=== PATIENT | female | born 2000 | race Caucasian/White ===

== ENCOUNTER 2020-08-07 15:06 | Outpatient (CLI) | payer SELFPAY ==
[2020-08-07 16:29] LABS: Hepatitis A Antibody IgM Non-Reactive (Nonreactive); Hepatitis B Core IgM Non-Reactive (Nonreactive); Hepatitis B Surface Antigen Non-Reactive (Nonreactive); Hepatitis C Virus Antibody Non-Reactive (Nonreactive)
[2020-08-07 16:33] LABS: HIV 1 & 2 Antibody Non-Reactive (Non-Reactiv); HIV 1 & 2 Antigen Non-Reactive (Non-Reactiv)
[2020-08-07 16:59] LABS: Rapid Plasma Reagin Syphilis Reactive (Nonreactive)
[2020-08-10 14:03] LABS: HSV 1 DNA NOT DETECTED; HSV 2 DNA NOT DETECTED; HSV Source SERUM
== END 2020-08-07 15:07 | disposition home or self-care (01) ==
PROVIDERS: Visit Provider Nurse Practitioner Family
DX: Z72.89 Other problems related to lifestyle (principal); N89.9 Noninflammatory disorder of vagina, unspecified
CPT/HCPCS: 36415; 80074; 86592; 87530; 87806

== ENCOUNTER 2021-06-24 16:10 | Inpatient (IN) | payer MEDICAID, SELFPAY ==
[2021-06-24] VITALS (73 sets, daily range): BP systolic 112–157; BP diastolic 58–98; PULSE 59–116; RESP 18; TEMP 35.5–36.1; O2SAT 87–100; BMI 36.1
[2021-06-24 14:52] LABS: Amphetamines Screen Urine Negative (Negative); Barbiturates Screen Urine Negative (Negative); Benzodiazepines Screen Urine Negative (Negative); Cocaine Screen Urine Negative (Negative); Opiate Screen Urine Negative (Negative); PCP Screen Urine Negative (Negative); THC Screen Urine Positive (Negative)
[2021-06-24 15:35] LABS: Add Urine Microscopic? YES; Bilirubin Urine Neg (Negative); Blood Urine 2+ (Negative); Glucose Urine UA Norm (Normal); Ketones Urine Negative (Negative); Leukocyte Esterase Urine 2+ (Negative); Nitrate Urine Negative (Negative); Protein Urine Neg (Negative); Specific Gravity, Urine 1.005 (1.005-1.030); Urine Appearance SL Hazy (CLEAR); Urine Color Colorless (Yellow); Urobilinogen Urine Norm (Negative); pH Urine 7 (5-7)
[2021-06-24 15:36] LABS: Add Urine Culture? Yes; Bacteria Urine 2+ /hpf; RBC Urine 0-4 /hpf (0-2); WBC Urine 15-25 /hpf (0-5)
[2021-06-24 15:42] LABS: Urine Creatinine 11 mg/dL (28-217); Urine Protein Random 6 mg/dL
[2021-06-24 15:46] LABS: UPRO/UCREAT Ratio 0.55 mg/mg CR
[2021-06-24 16:12] LABS: Basophils # 0.1 10^3/uL (0.0-0.1); Basophils % 0.4 %; Eosinophils % 0.2 %; Hematocrit 35.9 % (37.0-47.0); Hemoglobin 12.3 g/dL (11.5-15.3); Lymphocytes # 2.2 10^3/uL (0.8-4.8); Lymphocytes % 16.4 %; Mean Corpuscular HGB Conc 34.3 g/dL (30.0-36.0); Mean Corpuscular Hemoglobin 31.6 pg (28.0-34.0); Mean Corpuscular Volume 92.3 fl (81-99); Mean Platelet Volume 12.9 fL (7.4-10.4); Monocytes # 0.8 10^3/uL (0.2-0.9); Monocytes % 5.9 %; Neutrophils # 10.34 10^3/uL (1.8-7.7); Neutrophils % 76.7 %; Nucleated Red Blood Cells % 0 %; Platelet Count 177 10^3/cmm (130-400); Red Blood Count 3.89 10^6/uL (4.1-5.3); Red Cell Distribution Width 12.8 % (12.1-15.1); White Blood Count 13.5 10^3/uL (4.0-10.0)
[2021-06-24 16:38] LABS: Alanine Aminotransferase 11 U/L (0-33); Albumin Level 3.5 g/dL (3.5-5.2); Alkaline Phosphatase 174 IU/L (35-105); Aspartate Amino Transferase 21 U/L (0-32); Blood Urea Nitrogen 6 mg/dL (6-20); Calcium 9.2 mg/dL (8.5-10.5); Carbon Dioxide 21 mmol/L (22-29); Chloride 105 mmol/L (98-107); Globulin 2.6 g/dL (1.3-4.6); Glomerular Filtration Rate 155.7 mL/min (90-130); Glucose 67 mg/dL (65-115); Osmolality Calculated 284 mOsm/kg (285-295); Sodium 139 mmol/L (136-145); Total Bilirubin 0.2 mg/dL (0.15-1.2); Total Protein 6.1 g/dL (6.6-8.7)
[2021-06-24 16:39] LABS: Uric Acid 5.6 mg/dL (2.4-5.7)
--- NOTE | 2021-06-24 16:55 | PC.NURSE ---
Referral Father of baby was previously involved but committed suicide.
[2021-06-24 17:00] LABS: Adenovirus Not Detected (NOT DETECT); Chlamydia Pneumoniae Not Detected (NOT DETECT); Coronavirus 229E,HKU1,NL63,OC4 Not Detected (NOT DETECT); Human Metapneumovirus Not Detected (NOT DETECT); Human Rhinovirus/Enterovirus Not Detected (NOT DETECT); Influenza A Not Detected (NOT DETECT); Influenza A H1 Not Detected (NOT DETECT); Influenza A H1-2009 Not Detected (NOT DETECT); Influenza A H3 Not Detected (NOT DETECT); Influenza B Not Detected (NOT DETECT); Mycoplasma Pneumoniae Not Detected (NOT DETECT); Parainfluenza Virus Type 1 Not Detected (NOT DETECT); Parainfluenza Virus Type 2 Not Detected (NOT DETECT); Parainfluenza Virus Type 3 Not Detected (NOT DETECT); Parainfluenza Virus Type 4 Not Detected (NOT DETECT); Respiratory Syncytial Virus A Not Detected (NOT DETECT); Respiratory Syncytial Virus B Not Detected (NOT DETECT); SARS-COV-2 Not Detected (NOT DETECT)
[2021-06-24] MEDS: oxytocin 30 UNIT/500 ML BAG 4 UNIT IV (17:45)
[2021-06-24] MEDS: dextrose 5%-lactated ringers 1,000 ML 125 ML IV (17:45)
--- NOTE | 2021-06-24 18:17 | PM.HP ---
Providers/Chief Complaint Admitting Physician: Wilmer Smyth MD Chief Complaint: contractions, spotting History of Present Illness Shanelle Aragon is a 21 year old at 40.3 weeks gestation consistent with 20-week ultrasound. Her is complicated by syphilis status post treatment, history of chlamydia outside of this , depression on sertraline 50 mg, father baby recently committed suicide, THC positive. The patient presented to labor and delivery triage The patient sees Dr. Latonya Funk for care. She was scheduled to see Dr. Lester for delivery at [facility], but they did not feel comfortable delivering there. For this reason she presented to our facility for contractions. Contractions started on the evening of 06/23/2021. They have gradually increased and at presentation she was 3 to 4 cm dilated. After 2 hours she had changed to 4 to 5 cm dilation with 90% effacement. For this reason she was kept for spontaneous labor. The patient was noted to have elevated blood pressures and had labs done that did not show signs of preeclampsia. The patient currently has some borderline elevated blood pressures consistent with gestational hypertension. Her other labs so far would not be consistent with preeclampsia or its complications. The patient had a positive RPR during . She was treated with Bicillin LA on 10/19/2020, 12/28/2020, 04/17/2021, and 05/03/2021. I do not have further records regarding follow-up testing for these at this time. The patient is GBS negative. The patient is currently on sertraline for depression. The father baby during the second trimester from suicide per records. The patient denies any chest pains, shortness of breath, headache, nausea, vomiting, fever, cough, leakage of fluid, vaginal bleeding. Medications/Allergies Home Medications Medication Instructions Recorded Confirmed Last Taken Type fluoxetine 40 mg capsule 40 mg PO DAILY 30 Days #30 cap 03/17/20 03/17/20 Unknown Rx Allergies Allergy/AdvReac Type Severity Reaction Status Date / Time No Known Allergies Allergy Verified 01/06/20 15:31 PFSH Acute PFSH: Medical History (Updated 06/24/21 @ 18:33 by Wilmer Smyth MD) Alcohol abuse MDD (major depressive disorder) Surgical History (Updated 06/24/21 @ 18:33 by Wilmer Smyth MD) History of appendectomy Social History Smoking and tobacco status: current every day smoker cigarettes Years cigarettes smoked: 1 Smoking risk assessment/counseling performed?: Yes Tobacco counseling given: counseling >3 minutes Current gender identity: Female Female Reproductive History: : 1 Vitals/I&O/Wt Last Vital Signs Temp 95.9 F L 06/24/21 14:09 Pulse 68 06/24/21 18:10 Resp 18 06/24/21 14:27 BP 134/91 06/24/21 18:10 Weight last 48 hrs Weight 238 lb Physical Exam Narrative: EXAM NARRATIVE: General: Alert and oriented x3 Eyes: Pupils equal round and reactive to light and accommodation Mouth: Mucous membranes moist, pharynx non-erythematous Cardiac: Regular rate and rhythm without murmurs Lungs: Clear to auscultation bilaterally without wheezes, crackles or rhonchi Abdomen: Soft, non-tender, fundus consistent with gestational age Extremities: Trace edema in the bilateral lower extremities Neuro: Deep tendon reflexes are normal in the bilateral lower extremities Data : 06/24/21 16:00 06/24/21 16:00 A&P Assessment and plan (1) MDD (major depressive disorder): Status: Acute (2) Intrauterine : Status: Acute (3) Gestational hypertension: Status: Acute (4) Positive RPR test: Status: Acute Additional A&P Information heart tones are currently in the mid 140s with moderate variability good accelerations with a category 1 tracing. The patient is shantel every 3 to 5 minutes. She has been making active change on her own, but her contractions have been spacing out, so she was started on IV Pitocin to augment labor. The patient may have a laboring epidural when she desires. Her blood pressures are currently in the 130s to 140s over 80s to 90s. This is most consistent with gestational hypertension. I do not see any severe features at this time. Her labs for help syndrome are negative. We will start the antihypertensive protocol if needed. The patient did have a positive RPR and had 4 doses of Bicillin given. I do not have labs present to show what her most recent testing was. I also do not have labs to show confirmation of syphilis infection. We will recheck an RPR and if this is positive, we will plan to check a treponemal test for confirmation. It is always possible that this was a false positive test. Being that she was treated x4, she would likely have received adequate treatment. Patient's GBS is negative. Her Covid swab was negative. We will proceed with routine care at this time. All questions were answered. Plan for vaginal delivery if possible. The was measuring 3091 g on June 01. We will watch for signs of a large for gestational since we are past 40 weeks gestation. All questions were answered. The patient and her family members are in agreement with the current plan of care. Attestations Medical Necessity Statement*: The patient will be here for greater than 2 midnights. The patient needs inpatient care secondary to routine intrapartum management and management of labor and delivery. Time Spent in Patient Care: Greater than 35 minutes Coding Level of Care Code Acute Dock Grader for g Fwd Diagnoses MDD (major depressive disorder) F32.9 Intrauterine Z34.90 Gestational hypertension O13.9 Positive RPR test A53.0
[2021-06-24] MEDS: lactated ringers 1,000 ML 999 ML IV (18:39)
[2021-06-24 19:52] LABS: Rapid Plasma Reagin Syphilis Reactive (Nonreactive)
[2021-06-24] MEDS: butorphanol 2 mg/mL SDV 1 mL 1 MG IVP (20:17)
--- NOTE | 2021-06-24 20:30 | P.ANESASSM_ITS ---
Pre-Anesthetic Assessment Pre-Anesthetic Assessment: Height/Weight: Height 1.73 m Weight 107.955 kg Temp Pulse Resp BP Pulse Ox 95.9 F L 102 H 18 136/74 98 06/24/21 14:09 06/24/21 20:56 06/24/21 16:23 06/24/21 20:56 06/24/21 20:54 Preop Diagnosis: IUP Proposed Procedure: labor epidural Was Beta Edith taken within 24 hours: N/A Was Clonidine taken within 24 hours: N/A Social: Social History: No alcohol and No tobacco Exam: Pre-Anes Outpt Exam: alert and oriented x 3 Airway: Submandibular: WNL Cervical ROM: WNL MP: 2 Dentition: Full History/ROS: No significant history except as noted Pulmonary: Pulmonary: None reported CV/HEM: CV/HEM: HTN (gestational- no meds given) : : None reported Hepatic: Hepatic: None reported GI: GI: GERD Metabolic: Metabolic: None reported Musc/skel: Musc/skel: None reported Neuropsych: Neuropsych: None reported Anesthetic Plan: ASA status: 2 Anesthesia: Anesthesia Evaluation and Regional (specify below) (epidural) Risk of > 500 ml blood loss (7ml/kg in children): No Meds/Allergies Current Medications: Current Medications Generic Name Dose Route Start Last Admin Trade Name Freq PRN Reason Stop Dose Admin Butorphanol Tartra te 1 mg 06/24/21 16:23 06/24/21 20:17 Butorphanol 2 Mg /Ml Sdv 1 Ml IVP 1 mg Q2H PRN Administration SEVERE PAIN Dextrose/Lactated Ringer's 1,000 mls @ 125 m ls/hr 06/24/21 16:30 06/24/21 17:45 Dextrose 5%-Lact ated Ringers IV 125 mls/hr .Q8H LISHA Administration Lactated Ringer's 1,000 mls @ 999 m ls/hr 06/24/21 16:23 06/24/21 18:39 Lactated Ringers IV 999 mls/hr .Q1H1M PRN Administration Per L&D Rescitati on Protocol Oxytocin 30 unit in 500 ml s @ 1 mls/hr 06/24/21 18:00 06/24/21 19:00 Pitocin IV 12 milliunit/min .Q24H LISHA 12 mls/hr Titration Protocol 1 MILLIUNIT/MIN PFSH Anesthesia PFSH: Medical History (Updated 06/24/21 @ 18:33 by Wilmer Smyth MD) Alcohol abuse MDD (major depressive disorder) Surgical History (Updated 06/24/21 @ 18:33 by Wilmer Smyth MD) History of appendectomy Social History Smoking and tobacco status: current every day smoker cigarettes Years cigarettes smoked: 1 Smoking risk assessment/counseling performed?: Yes Tobacco counseling given: counseling >3 minutes Current gender identity: Female Female Reproductive History: : 1 Data Anesthesia CBC & Chem 7: 06/24/21 16:00 06/24/21 16:00 Other Labs: Laboratory Results - last 48 hr 06/24/21 06/24/21 06/24/21 14:15 14:15 14:15 WBC RBC Hgb Hct MCV MCH MCHC RDW Plt Count MPV Neut % (Auto) Lymph % (Auto) Beckham % (Auto) Eos % (Auto) Baso % (Auto) Neut # (Auto) Lymph # (Auto) Beckham # (Auto) Eos # (Auto) Baso # (Auto) Nucleated RBC % (auto) Nucleated RBCs # Sodium Potassium Chloride Carbon Dioxide Anion Gap BUN Creatinine GFR Calculation Glucose Calculated Osmolality Uric Acid Calcium Total Bilirubin AST ALT Alkaline Phosphatase Total Protein Albumin Globulin Urine Color Colorless Urine Appearance Sl hazy Urine pH 7 Ur Specific [place] 1.005 Urine Protein Neg Urine Glucose (UA) Norm Urine Ketones Negative Urine Blood 2+ H Urine Nitrate Negative Urine Bilirubin Neg Urine Urobilinogen Norm Ur Leukocyte Esterase 2+ H Urine RBC 0-4 H Urine WBC 15-25 H Ur Squamous Epith Cells 5-10 H Amorphous Sediment Not Reportable Urine Bacteria 2+ H U Random Total Protein 6 Urine Creatinine 11 L Protein/Creatinin Ratio 0.55 Urine Opiates Screen Negative Ur Barbiturates Screen Negative Ur Phencyclidine Scrn Negative Ur Amphetamines Screen Negative U Benzodiazepines Scrn Negative Urine Cocaine Screen Negative U Marijuana (THC) Screen Positive H RPR Coronavirus 229E (PCR) SARS-CoV-2 (PCR) 06/24/21 06/24/21 06/24/21 14:53 16:00 16:00 WBC 13.5 H RBC 3.89 L Hgb 12.3 Hct 35.9 L MCV 92.3 MCH 31.6 MCHC 34.3 RDW 12.8 Plt Count 177 MPV 12.9 H Neut % (Auto) 76.7 Lymph % (Auto) 16.4 Beckham % (Auto) 5.9 Eos % (Auto) 0.2 Baso % (Auto) 0.4 Neut # (Auto) 10.34 H Lymph # (Auto) 2.2 Beckham # (Auto) 0.8 Eos # (Auto) 0.0 Baso # (Auto) 0.1 Nucleated RBC % (auto) 0 Nucleated RBCs # 0.0 Sodium 139 Potassium 4.0 Chloride 105 Carbon Dioxide 21 L Anion Gap 17.0 BUN 6 Creatinine 0.5 GFR Calculation 155.7 H Glucose 67 Calculated Osmolality 284 L Uric Acid Calcium 9.2 Total Bilirubin 0.2 AST 21 ALT 11 Alkaline Phosphatase 174 H Total Protein 6.1 L Albumin 3.5 Globulin 2.6 Urine Color Urine Appearance Urine pH Ur Specific [place] Urine Protein Urine Glucose (UA) Urine Ketones Urine Blood Urine Nitrate Urine Bilirubin Urine Urobilinogen Ur Leukocyte Esterase Urine RBC Urine WBC Ur Squamous Epith Cells Amorphous Sediment Urine Bacteria U Random Total Protein Urine Creatinine Protein/Creatinin Ratio Urine Opiates Screen Ur Barbiturates Screen Ur Phencyclidine Scrn Ur Amphetamines Screen U Benzodiazepines Scrn Urine Cocaine Screen U Marijuana (THC) Screen RPR Coronavirus 229E (PCR) Not detected SARS-CoV-2 (PCR) Not detected 06/24/21 06/24/21 16:00 18:00 WBC RBC Hgb Hct MCV MCH MCHC RDW Plt Count MPV Neut % (Auto) Lymph % (Auto) Beckham % (Auto) Eos % (Auto) Baso % (Auto) Neut # (Auto) Lymph # (Auto) Beckham # (Auto) Eos # (Auto) Baso # (Auto) Nucleated RBC % (auto) Nucleated RBCs # Sodium Potassium Chloride Carbon Dioxide Anion Gap BUN Creatinine GFR Calculation Glucose Calculated Osmolality Uric Acid 5.6 Calcium Total Bilirubin AST ALT Alkaline Phosphatase Total Protein Albumin Globulin Urine Color Urine Appearance Urine pH Ur Specific [place] Urine Protein Urine Glucose (UA) Urine Ketones Urine Blood Urine Nitrate Urine Bilirubin Urine Urobilinogen Ur Leukocyte Esterase Urine RBC Urine WBC Ur Squamous Epith Cells Amorphous Sediment Urine Bacteria U Random Total Protein Urine Creatinine Protein/Creatinin Ratio Urine Opiates Screen Ur Barbiturates Screen Ur Phencyclidine Scrn Ur Amphetamines Screen U Benzodiazepines Scrn Urine Cocaine Screen U Marijuana (THC) Screen RPR Reactive H Coronavirus 229E (PCR) SARS-CoV-2 (PCR) Cardiac Studies: No Data to Display
--- NOTE | 2021-06-24 21:00 | ANES.PROC ---
Anesthesia Procedures Procedure/Date: 06/24/21 labor epidural Epidural: Time Out Performed: Yes Consents Signed: Procedure Consent Consent: from patient, risks and benefits reviewed and patient agrees to proceed Lumbar Level: L3-L4 Epidural position: sitting Epidural procedure: sterile prep of area, 1% lidocaine to numb the area, 18 g needle, negative for paresthesia passed, test dose given, 1.5% xylocaine 1:200k epi, placed PCEA, no systemic response, sterile dressing applied, L.U.D. no apparent complications and 0.2% Ropiavacaine @ mls/hr (13) Additional Comments: KIRK at 7 taped at 14 at skin
[2021-06-24] MEDS: ondansetron 2 mg/ML SDV 2 mL 4 MG IVP (21:18)
[2021-06-25] VITALS (22 sets, daily range): BP systolic 103–161; BP diastolic 57–86; PULSE 63–112; RESP 16; TEMP 35.8–37.1; O2SAT 98
[2021-06-25] MEDS: lidocaine 2% INJ 20 mL INJECTION (00:45)
--- NOTE | 2021-06-25 01:12 | PM.DELIVERY ---
Delivery Note: Date of delivery: June 25, 2021 Pre-delivery diagnoses: 1. Intrauterine at 40.4 weeks gestation 2. RPR positive status post 4 doses of penicillin 3. Depression on sertraline 4. THC positive 5. Smoker Post-delivery diagnoses: 1. Intrauterine status post spontaneous vaginal delivery at 40.4 weeks gestation 2. RPR positive status post 4 doses of penicillin 3. Depression on sertraline 4. THC positive 5. Smoker 6. Delivery of healthy male weighing 8 pounds 0 ounces with Apgars of 9 and 9 Procedure: Spontaneous vaginal delivery Op report anesthesia: Epidural Delivering Physician: Wilmer Smyth MD Estimated blood loss (mL): 175 Findings: Shanelle Aragon is a 21 year old G1 now P1 status post spontaneous vaginal delivery at 40.4 weeks gestation consistent with 20-week ultrasound. Her is complicated by syphilis status post treatment, history of chlamydia outside of this , depression on sertraline 50 mg, father baby recently committed suicide, THC positive. 1. Delivery of healthy male weighing 8 pounds 0 ounces with Apgars of 9 and 9 2. Intact placenta with peripheral umbilical cord insertion site Pre-Delivery Course: The patient presented to labor and active labor and was admitted on the afternoon of 06/24/2021. She was 3 to 4 cm upon admission and changed to 4 to 5 cm after 2 hours. Pitocin was started to augment labor as her contractions started to space out. Her blood pressures were borderline initially in the 130-140 systolic over 80-90 diastolic range. Her blood pressures did not end up getting concerning during her intrapartum phase. The patient also had a positive syphilis screen and was treated with Bicillin as an outpatient. Her RPR was again positive today, so a confirmatory treponemal antibody was ordered. Results are pending. The patient continued to make cervical change and AROM was performed at 2213 on 06/24/2021. The patient made progress and was complete by 2342 on 06/24/2021. Delivery: The patient began pushing at 00:28 on 06/25/2021. She pushed well and the infant descended rapidly. The delivered in the OA position at 00:35 on 06/25/2021. There was 1 nuchal cord and it was reduced prior to delivery of the 's body. Significant coaching was given to slow down pushing. The left shoulder was the anterior shoulder and it delivered with ease. The rest of the delivered with ease. The infant was crying immediately upon delivery. The 's mouth and nose were bulb suctioned by myself. The was placed on the mother's chest where the nurses were waiting to care for him. The cord was clamped by myself after approximately 1 minute and cut by the infant's grandmother. Cord blood was obtained. The cord was then drained of blood and traction was placed on the umbilical cord. Uterine massage was carried out. The placenta delivered without complication at 00:40 on 06/25/2021. The placenta was noted to be intact with a peripheral umbilical cord insertion site. The uterus was massaged and was noted to be firm and midline. There was little bleeding. The cervix was inspected and no lacerations were noted. The vaginal wall was inspected and a large second-degree posterior wall laceration was noted. This did not extend to the rectum. 2% lidocaine was placed for anesthesia. 3-0 Vicryl was used to repair the laceration in a running fashion. The patient tolerated this well. A digital rectal exam was done and no sutures were noted in the rectum. Currently both the mother and infant are doing very well. A&P Assessment and plan (1) MDD (major depressive disorder): Status: Acute (2) Intrauterine : Status: Acute (3) Gestational hypertension: Status: Acute (4) Positive RPR test: Status: Acute Coding Level of Care Code Acute Pillowcase Cleaner for [facility] Fwd Diagnoses MDD (major depressive disorder) F32.9 Intrauterine Z34.90 Gestational hypertension O13.9 Positive RPR test A53.0
[2021-06-25] MEDS: lanolin oint 7 gm 1 APPLIC TOPICAL (04:13)
[2021-06-25] MEDS: benzocaine-menthol 78 gm Canister 1 SPRAY TOPICAL (04:13)
--- NOTE | 2021-06-25 10:12 | ANE.PACU2 ---
Inpatient post-anesthesia follow up: Airway intact: Yes Vital signs: Temperature 98.2 F Pulse Rate 81 Respiratory Rate 16 Blood Pressure 117/77 Pulse Oximetry 98 Oxygen Delivery Me thod Room Air Oxygen Flow Rate Fraction of Inspir ed Oxygen Hydration adequate: Yes Nausea and vomiting: No Pain level: 2 Mental status: Baseline
[2021-06-25] MEDS: ibuprofen 800 mg tablet PO ×3 (11:04→20:28)
[2021-06-25] MEDS: prenatal vitamin Capsule 1 CAP PO (11:05)
[2021-06-25] MEDS: docusate sodium 100 mg Capsule PO ×2 (11:05→20:28)
[2021-06-25 14:18] LABS: Hematocrit 30.8 % (37.0-47.0); Hemoglobin 10.8 g/dL (11.5-15.3); Mean Corpuscular HGB Conc 35.1 g/dL (30.0-36.0); Mean Corpuscular Hemoglobin 31.8 pg (28.0-34.0); Mean Corpuscular Volume 90.6 fl (81-99); Mean Platelet Volume 13.6 fL (7.4-10.4); Platelet Count 141 10^3/cmm (130-400); Red Cell Distribution Width 12.8 % (12.1-15.1); White Blood Count 15.8 10^3/uL (4.0-10.0)
--- NOTE | 2021-06-25 17:58 | P.PN_ITS ---
Subjective Subjective: Interval history: The patient is doing well at this time. She is ambulating, voiding, passing gas and tolerating food by mouth. Her pain is currently well controlled. Her bleeding is decreasing well. Vitals/I&O/Wt Last Vital Signs Temp 98.2 F 06/25/21 09:45 Pulse 81 06/25/21 09:45 Resp 16 06/25/21 09:45 BP 117/77 06/25/21 09:45 Pulse Ox 98 06/25/21 09:45 06/25/21 06/25/21 06/25/21 06:59 14:59 22:59 Intake Total 1551.4 / 1573.4 Output Total 960 / 1160 Balance 591.4 / 413.4 Weight last 48 hrs Weight 238 lb Physical Exam Narrative: EXAM NARRATIVE: General: Alert and oriented x3 Cardiac: Regular rate and rhythm without murmurs Lungs: Clear to auscultation bilaterally without wheezes, crackles or rhonchi Abdomen: Soft, mild tenderness over the uterus. Uterus is firm and below the umbilicus. Extremities: Trace edema in the bilateral lower extremities Urinary Catheter Management^: Delarosa: Cath Placed During This Visit: yes, but has since been removed by the nurse Reason for Continuing Indwelling Catheter: Required Immobilization for Trauma or Surgery or Anesthesia Urinary Catheter Date of Insertion: 06/24/21 Urinary Catheter Time of Insertion: 21:25 Date Urinary Catheter Removed: 06/25/21 Time Urinary Catheter Discontinued: 00:20 Data : 06/25/21 13:21 06/24/21 16:00 Micro: Microbiology 06/24/21 14:15 Urine Culture - Preliminary Urine,Clean Catch A&P Additional A&P Information The patient is doing well . Routine instructions were discussed. Continue with routine care. Blood pressures are currently stable. We will plan for discharge home tomorrow as long as everything continues to go well. Attestations Medical Necessity Statement*: The patient will be here for greater than 2 midnights due to routine intrapartum and management of labor and delivery. Coding Level of Care Code Acute Supervisor Record Press for Marci Martínez
[2021-06-26 04:26] VITALS: BP 103/67; PULSE 59; RESP 14; TEMP 36.7
--- NOTE | 2021-06-26 06:38 | PM.DCS ---
Discharge Providers Date of Admission: 06/24/21 16:10 Date of Discharge: June 26, 2021 Attending Provider at Admission: Wilmer Smyth MD Attending Provider at Discharge: Wilmer Smyth MD Diagnoses at Discharge Discharge Diagnosis (1) MDD (major depressive disorder): Status: Acute (2) Intrauterine : Status: Acute (3) Gestational hypertension: Status: Acute (4) Positive RPR test: Status: Acute Other Information Additional DC diagnoses/information: 1. Intrauterine status post spontaneous vaginal delivery at 40.4 weeks gestation 2. RPR positive status post 4 doses of penicillin 3. Depression on sertraline 4. THC positive 5. Smoker 6. Delivery of healthy male weighing 8 pounds 0 ounces with Apgars of 9 and 9 Reason for Visit Reason for Visit: contractions, spotting Hospital Course Hospital Course Pre-Delivery Course: The patient presented to labor and active labor and was admitted on the afternoon of 06/24/2021. She was 3 to 4 cm upon admission and changed to 4 to 5 cm after 2 hours. Pitocin was started to augment labor as her contractions started to space out. Her blood pressures were borderline initially in the 130-140 systolic over 80-90 diastolic range. Her blood pressures did not end up getting concerning during her intrapartum phase. The patient also had a positive syphilis screen and was treated with Bicillin as an outpatient. Her RPR was again positive today, so a confirmatory treponemal antibody was ordered. Results are pending. The patient continued to make cervical change and AROM was performed at 2213 on 06/24/2021. The patient made progress and was complete by 2342 on 06/24/2021. Delivery: The patient began pushing at 00:28 on 06/25/2021. She pushed well and the descended rapidly. The infant delivered in the OA position at 00:35 on 06/25/2021. There was 1 nuchal cord and it was reduced prior to delivery of the infant's body. Significant coaching was given to slow down pushing. The left shoulder was the anterior shoulder and it delivered with ease. The rest of the delivered with ease. The infant was crying immediately upon delivery. The infant's mouth and nose were bulb suctioned by myself. The infant was placed on the mother's chest where the nurses were waiting to care for him. The cord was clamped by myself after approximately 1 minute and cut by the 's grandmother. Cord blood was obtained. The cord was then drained of blood and traction was placed on the umbilical cord. Uterine massage was carried out. The placenta delivered without complication at 00:40 on 06/25/2021. The placenta was noted to be intact with a peripheral umbilical cord insertion site. The uterus was massaged and was noted to be firm and midline. There was little bleeding. The cervix was inspected and no lacerations were noted. The vaginal wall was inspected and a large second-degree posterior wall laceration was noted. This did not extend to the rectum. 2% lidocaine was placed for anesthesia. 3-0 Vicryl was used to repair the laceration in a running fashion. The patient tolerated this well. A digital rectal exam was done and no sutures were noted in the rectum. course: The patient has done very well without any complications. Her bleeding has decreased well. Her pain is well controlled with medications. She is ambulating, voiding, passing gas and tolerating food by mouth. Her blood pressures have been decreasing well. Send off treponemal antibody is still pending. This can be followed as an outpatient. Routine discharge instructions were discussed. The patient is in agreement with discharge home at this time. All questions were answered. Physical Exam Narrative: EXAM NARRATIVE: General: Alert and oriented x3 Cardiac: Regular rate and rhythm without murmurs Lungs: Clear to auscultation bilaterally without wheezes, crackles or rhonchi Abdomen: Soft, mild tenderness over the uterus. Uterus is firm and below the umbilicus. Extremities: Trace edema in the bilateral lower extremities Urinary Catheter Management^: Delarosa: Cath Placed During This Visit: yes, but has since been removed by the nurse Reason for Continuing Indwelling Catheter: Required Immobilization for Trauma or Surgery or Anesthesia Urinary Catheter Date of Insertion: 06/24/21 Urinary Catheter Time of Insertion: 21:25 Date Urinary Catheter Removed: 06/25/21 Time Urinary Catheter Discontinued: 00:20 Discharge Data Data Completed and Pending: Pending at discharge Category Date Time Status Group B Streptoco ccus Culture Routi ne Lab 06/24/21 17:45 Received Miscellaneous Saba t Routine Lab 06/24/21 16:00 Received Urine Culture Sta t Lab 06/24/21 14:15 Results Labs from last 24 hours 06/25/21 13:21 WBC 15.8 H RBC 3.40 L Hgb 10.8 L Hct 30.8 L MCV 90.6 MCH 31.8 MCHC 35.1 RDW 12.8 Plt Count 141 MPV 13.6 H Vitals: Last Vital Signs Temp 98.0 F 06/26/21 04:26 Pulse 59 L 06/26/21 04:26 Resp 14 06/26/21 04:26 BP 103/67 06/26/21 04:26 Pulse Ox 98 06/25/21 09:45 Discharge Plan Discharge Patient Disposition: Home Condition: Good Prescriptions: New hydrocodone-acetaminophen 5-325 mg Tablet 1 tab PO Q6H PRN (Reason: Moderate To Severe Pain) Qty: 15 RF: 0 ibuprofen 800 mg Tablet 800 mg PO TID Qty: 60 RF: 0 sertraline 50 mg tablet 50 mg PO DAILY Qty: 30 RF: 0 docusate sodium 100 mg Capsule 100 mg PO BID Qty: 30 RF: 0 -U 106.5-1 mg Capsule 1 cap PO DAILY Qty: 60 RF: 0 Discontinued fluoxetine 40 mg capsule 40 mg PO DAILY 30 Days Qty: 30 RF: 3 Discharge Orders: Discharge Order (Routine); Ordered 06/26/21 Ordered By: Wilmer Smyth Referrals: Latonya Funk DO [Staff Physician] - 6 Weeks Discharge Diet: Regular Discharge Activity: Limit activity as instructed Patient Instructions: Opioid Safety Activity Restrictions/Additional Instructions: Nothing per vagina for 6 weeks. If you have any complications or concerns, please seek medical attention right away. Discharge Attestations Time Spent in Discharge Care*: greater than 30 min Quality Metrics Clinical Quality Measures During this hospital stay, did patient experience: None Coding Level of Care Code Acute g FW DC note Diagnoses MDD (major depressive disorder) F32.9 Intrauterine Z34.90 Gestational hypertension O13.9 Positive RPR test A53.0
[2021-06-26 12:45] VITALS: BP 118/79; PULSE 79; RESP 18; TEMP 36.9; O2SAT 97
== END 2021-06-26 12:45 | disposition home or self-care (01) | DRG 806 ==
PROVIDERS: Admitting Provider Family Medicine; Visit Provider Family Medicine
DX: O98.12 Syphilis complicating childbirth (principal); O99.324 Drug use complicating childbirth; Z37.0 Single live birth; O71.4 Obstetric high vaginal laceration alone; A53.9 Syphilis, unspecified; O48.0 Post-term pregnancy; Z3A.40 40 weeks gestation of pregnancy; F32.9 Major depressive disorder, single episode, unspecified; O99.344 Other mental disorders complicating childbirth; O99.334 Smoking (tobacco) complicating childbirth; F17.210 Nicotine dependence, cigarettes, uncomplicated; F12.90 Cannabis use, unspecified, uncomplicated; O69.81X0 Labor and delivery complicated by cord around neck, without compression, not applicable or unspecified; O13.4 Gestational [pregnancy-induced] hypertension without significant proteinuria, complicating childbirth
CPT/HCPCS: 36415; 51702; 59025; 59409; 80053; 80306; 81001; 82570; 84156; 84550; 85025; 85027; 86592; 86780; 87081; 87086; 87635; 99211; J0595; J2405; J2795

== ENCOUNTER → 2021-11-16 11:17 | Outpatient (BNVA) | payer MEDICAID, SELFPAY | PROVIDERS: Visit Provider Nurse Practitioner | DX: F43.12 Post-traumatic stress disorder, chronic (principal); F10.21 Alcohol dependence, in remission; F12.20 Cannabis dependence, uncomplicated; Z72.0 Tobacco use | CPT/HCPCS: 90792 ==

== ENCOUNTER 2022-02-07 10:38 | Outpatient (CLI) | payer MEDICAID, SELFPAY ==
[2022-02-07 11:27] LABS: Estmated Average Glucose 91; Hemoglobin A1C 4.8 % (4.0-6.0)
[2022-02-07 11:42] LABS: Alanine Aminotransferase 9 U/L (0-33); Albumin Level 4.6 g/dL (3.5-5.2); Alkaline Phosphatase 62 U/L (35-105); Anion Gap 16.5 (5-19); Aspartate Amino Transferase 16 U/L (0-32); Blood Urea Nitrogen 8 mg/dL (6-20); Calcium 9.2 mg/dL (8.5-10.5); Carbon Dioxide 24 mmol/L (22-29); Chloride 103 mmol/L (98-107); Chol HDL Ratio 2.74 mg/dL (0.0-4.40); Cholesterol 137 mg/dL (0-200); Globulin 2.3 g/dL (1.3-4.6); Glomerular Filtration Rate 154.3 mL/min (90-130); Glucose 77 mg/dL (65-115); HDL Cholesterol 50 mg/dL (60-100); LDL Cholesterol Calculated 79 mg/dL (50-129); LDL HDL Ratio 1.58 RATIO (0.00-3.22); Osmolality Calculated 287 mOsm/kg (285-295); Potassium 3.5 mmol/L (3.5-5.1); Sodium 140 mmol/L (136-145); Total Bilirubin 0.5 mg/dL (0.15-1.2); Total Protein 6.9 g/dL (6.6-8.7); Triglycerides 38 mg/dL (0-150)
[2022-02-12 10:58] LABS: Vit D 1,25 (Oh)2, Total 55 pg/mL (18-72); Vit D2 1,25 (Oh)2 <8 pg/mL; Vit D3 1,25 (Oh)2 55 pg/mL
== END 2022-02-07 10:39 | disposition home or self-care (01) ==
LOC: LAB 10:41
PROVIDERS: Visit Provider Nurse Practitioner Psychiatric/Mental Health
DX: Z03.89 Encounter for observation for other suspected diseases and conditions ruled out (principal); Z79.899 Other long term (current) drug therapy
CPT/HCPCS: 80053; 80061; 82652; 83036

== ENCOUNTER → 2022-04-30 14:20 | Outpatient (BNVA) | payer MEDICAID, SELFPAY | PROVIDERS: Visit Provider Podiatrist Foot & Ankle Surgery | DX: G89.29 Other chronic pain (principal); L60.3 Nail dystrophy; M25.571 Pain in right ankle and joints of right foot | CPT/HCPCS: 73610 ==

== ENCOUNTER → 2022-07-26 12:57 | Outpatient (BNVA) | payer MEDICAID, SELFPAY | PROVIDERS: PCP Nurse Practitioner Family; Visit Provider Obstetrics & Gynecology | DX: R87.619 Unspecified abnormal cytological findings in specimens from cervix uteri (principal); Z01.419 Encounter for gynecological examination (general) (routine) without abnormal findings | CPT/HCPCS: 81025; 87624 ==

== ENCOUNTER → 2022-07-30 14:25 | Outpatient (BNVA) | payer MEDICAID, SELFPAY | PROVIDERS: PCP Nurse Practitioner Family; Visit Provider Nurse Practitioner Psychiatric/Mental Health | DX: Z79.899 Other long term (current) drug therapy (principal); F43.12 Post-traumatic stress disorder, chronic; F33.1 Major depressive disorder, recurrent, moderate; Z72.0 Tobacco use; F12.20 Cannabis dependence, uncomplicated | CPT/HCPCS: 80053; 84439; 84443 ==

== ENCOUNTER 2022-08-27 13:46 | Inpatient (IN) | payer MEDICAID, SELFPAY ==
[2022-08-27 13:57] VITALS: BP 129/60; PULSE 79; TEMP 36.8; O2SAT 98; BMI 24.3
--- NOTE | 2022-08-27 14:10 | ED.C_ITS ---
Documented by User: REMY Maynard 08/28/22 17:09 HPI - Psych General: Chief Complaint: Psychiatric Symptoms Stated Complaint: MHE Time Seen by Provider: 08/27/22 13:58 History of Present Illness: Patient is a 22-year-old female comes to the ED with SI. Past medical history of cannabis dependence, major depressive disorder and PTSD. Patient sees behavioral health and was recently put on lithium but ran out of prescription and has not been taking it for over a week. She states that for the past several weeks she has been having increased thoughts of SI. Denies having any plan in place. She has been very easily irritated and has been physically destructive to property. She reports feeling worthless/hopeless. Loss of interest in activities. Patient reports not feeling safe and wants to get help. Denies any HI. Associated symptoms: Reports depression and suicidal ideation; Deny auditory hallucinations, visual hallucinations or homicidal ideation Review of Systems Const: Denies: fever(s), chills or fatigue Eyes: Denies: change in vision or eye discomfort ENMT: Denies: throat pain, odynophagia, nasal discharge or nasal congestion Card: Denies: chest pain, palpitations, edema, swelling of feet/ankles, dyspnea on exertion or orthopnea Resp: Denies: dyspnea, productive cough or non-productive cough GI: Denies: abdominal pain, nausea, vomiting, diarrhea, constipation or hemat ochezia : Denies: flank pain, dysuria or hematuria Musc: Denies: neck pain, back pain or extremity swelling Skin/Breast: Denies: rash or new lesions Neuro: Denies: headache(s), numbness in extremities or weakness in extremities Psych: Reports: anxiety, depression, sleeping more, hopelessness, loss of interest, irritability and suicidal ideation; Denies: visual hallucinations, auditory hallucinations or homicidal ideation PFSH ED PFSH: Medical History Cannabis dependence, episodic use Chronic post-traumatic stress disorder Major depressive disorder, recurrent, moderate Psychiatric care Vapes nicotine containing substance Surgical History History of appendectomy Family History Grandmother Breast cancer, Onset Age: 45 Maternal Grandfather Diabetes Paternal Hypertension Maternal Denies family history of CAD (coronary artery disease) Clotting disorder Hyperlipidemia Chronic kidney disease (CKD) Bleeding disorder Thyroid disease Stroke Social History Desire information about substance/drug rehabilitation?: No Counseling given: No Physical Exam Const: COMMON NORMALS: patient oriented x3, healthy appearing and alert GENERAL APPEARANCE: cooperative and comfortable HENMT: COMMON NORMALS: normocephalic HEAD & SCALP: normocephalic MOUTH: Normal oral and palatal mucosa present THROAT: posterior oropharynx normal and uvula midline Neck/C-Spine: COMMON NORMALS: supple GENERAL: Yes normal visual inspection Resp: COMMON NORMALS: normal respiratory effort, No retractions, No use of accessory muscles and clear to auscultation bilaterally AUSCULTATION: clear to auscultation bilaterally Cardio: COMMON NORMALS: regular rate, regular rhythm, S1 normal heart sound present, S2 normal heart sound present, No gallops present (Cardio), No clicks present (Cardio), No murmurs present (Cardio) and Peripheral pulses 2+ throughout RATE: regular rate RHYTHM: regular rhythm HEART SOUNDS: S1 normal heart sound present and S2 normal heart sound present PERIPHERAL PULSES: Peripheral pulses 2+ throughout GI: COMMON NORMALS: Normal to inspection, nondistended, normoactive bowel sounds present, Soft to palpation, non-tender and no masses PALPATION: Yes Soft to palpation : COMMON NORMALS: Yes no CVA tenderness BLADDER/KIDNEY EXAM: Yes no CVA tenderness Back/Pelvis: COMMON NORMALS: no CVA tenderness Extremity: COMMON NORMALS: normal to inspection Neuro: COMMON NORMALS: patient oriented x3 SENSORIUM/ORIENTATION: Yes alert GAIT: Yes Normal gait present Psych: COMMON NORMALS: mental status grossly normal, cooperative and speech normal ACTIVITY/MOTOR BEHAVIOR: Yes appropriate eye contact SPEECH: Yes normal speech THOUGHT CONTENT: Yes Suicidality present and No Homicidality present Skin: GENERAL SKIN EXAM: dry skin Course Vital Signs: Vital signs: Vital Signs Temperature 98.7 F 08/28/22 14:00 Pulse Rate 78 08/28/22 14:00 Respiratory Rate 16 08/28/22 14:00 Blood Pressure 101/58 08/28/22 14:00 Pulse Oximetry 99 08/28/22 14:00 Oxygen Delivery Me thod 08/27/22 21:13 MDM - Psych Lab Data 08/27/22 14:30 08/27/22 14:30 Laboratory Results WBC 10.5 10^3/uL (4.0-10.0) H 08/27/22 14: RBC 4.54 10^6/uL (4.1-5.3) 08/27/22 14: Hgb 13.7 g/dL (11.5-15.3) 08/27/22 14: Hct 41.2 % (37.0-47.0) 08/27/22 14: MCV 90.7 fl (81-99) 08/27/22 14: MCH 30.2 pg (28.0-34.0) 08/27/22 14: MCHC 33.3 g/dL (30.0-36.0) 08/27/22 14: RDW 12.4 % (12.1-15.1) 08/27/22 14: Plt Count 233 10^3/cmm (130-400) 08/27/22 14: MPV 12.6 fL (7.4-10.4) H 08/27/22 14:30 Neut % (Auto) 67.8 % 08/27/22 14: Lymph % (Auto) 24.5 % 08/27/22 14: [place] % (Auto) 6.3 % 08/27/22 14: Eos % (Auto) 0.5 % 08/27/22 14: Baso % (Auto) 0.7 % 08/27/22: Neut # (Auto) 7.16 10^3/uL (1.8-7.7) 08/27/22 14: Lymph # (Auto) 2.6 10^3/uL (0.8-4.8) 08/27/22 14:30 [place] # (Auto) 0.7 10^3/uL (0.2-0.9) 08/27/22: Eos # (Auto) 0.1 10^3/uL (0.0-0.8) 08/27/22 14: Baso # (Auto) 0.1 10^3/uL (0.0-0.1) 08/27/22 14: Nucleated RBC % (auto) 0 % 08/27/22 14: Nucleated RBCs # 0.0 /100WBC 08/27/22 14:30 Sodium 141 mmol/L (136-145) 08/27/22 14:30 Potassium 3.9 mmol/L (3.5-5.1) 08/27/22 14:30 Chloride 103 mmol/L (98-107) 08/27/22 14:30 Carbon Dioxide 25 mmol/L (22-29) 08/27/22 14:30 Anion Gap 16.9 (5-19) 08/27/22 14:30 BUN 8 mg/dL (6-20) 08/27/22 14:30 Creatinine 0.7 mg/dL (0.5-0.9) 08/27/22 14:30 GFR Calculation 104.6 mL/min (90-130) 08/27/22 14: Glucose 82 mg/dL (65-115) 08/27/22 14:30 Calculated Osmolality 289 mOsm/kg (285-295) 08/27/22 14:30 Calcium 9.4 mg/dL (8.5-10.5) 08/27/22 14:30 Total Bilirubin 0.5 mg/dL (0.15-1.2) 08/27/22 14:30 AST 15 U/L (0-32) 08/27/22 14:30 ALT 11 U/L (0-33) 08/27/22 14:30 Alkaline Phosphatase 57 U/L (35-105) 08/27/22 14:30 Total Protein 7.3 g/dL (6.6-8.7) 08/27/22 14: Albumin 4.7 g/dL (3.5-5.2) 08/27/22 14:30 Globulin 2.6 g/dL (1.3-4.6) 08/27/22 14:30 HCG, Qual Negative (Negative) 08/27/22 14:30 Urine Color Light yellow (Yellow) 08/27/22 14:35 Urine Appearance Clear (CLEAR) 08/27/22 14:35 Urine pH 7 (5-7) 08/27/22 14:35 Ur Specific [place] 1.010 (1.005-1.030) 08/27/22 14:35 Urine Protein Neg (Negative) 08/27/22 14:35 Urine Glucose (UA) Norm (Normal) 08/27/22 14:35 Urine Ketones Negative (Negative) 08/27/22 14:35 Urine Blood Neg (Negative) 08/27/22 14:35 Urine Nitrate Negative (Negative) 08/27/22 14:35 Urine Bilirubin Neg (Negative) 08/27/22 14:35 Urine Urobilinogen Norm mg/dL (Negative) 08/27/22 14:35 Ur Leukocyte Esterase Negative (Negative) 08/27/22 14:35 Salicylates 0.9 mg/dL (3-10) L 08/27/22 14:30 Urine Opiates Screen Negative ng/mL (Negative) 08/27/22 14:35 Acetaminophen < 5.0 ug/mL (10-30) L 08/27/22 14:30 Ur Barbiturates Screen Negative ng/mL (Negative) 08/27/22 14:35 Ur Phencyclidine Scrn Negative ng/mL (Negative) 08/27/22 14:35 Ur Amphetamines Screen Negative ng/mL (Negative) 08/27/22 14:35 U Benzodiazepines Scrn Negative ng/mL (Negative) 08/27/22 14:35 [place] 1.1 mmol/L (0.6-1.2) 08/27/22 14:30 Urine Cocaine Screen Negative ng/mL (Negative) 08/27/22 14:35 U Marijuana (THC) Screen Positive ng/mL (Negative) H 08/27/22 14:35 Ethyl Alcohol < 10 mg/dL (0-10) 08/27/22 14:30 Discharge Plan Discharge Patient Disposition: Admitted As Inpatient Admit Provider: Irwin Bob Clinical Impression: Suicidal ideation, Bipolar disorder Condition: Stable Sign Out Sign Out Data: Patient Sign Out occurred on 08/27/22 at 17:20. Patient's care was discussed, and care was transferred from to Ok Aquino DO. Coding Level of Care Code ED Structural Iron Erector for Chg Fwd Documented by User: Ok Aquino DO 08/28/22 07:07 HPI - Psych General: Chief Complaint: Psychiatric Symptoms Stated Complaint: MHE Time Seen by Provider: 08/27/22 13:58 PFSH ED PFSH: Medical History Cannabis dependence, episodic use Chronic post-traumatic stress disorder Major depressive disorder, recurrent, moderate Psychiatric care Vapes nicotine containing substance Surgical History History of appendectomy Family History Grandmother Breast cancer, Onset Age: 45 Maternal Grandfather Diabetes Paternal Hypertension Maternal Denies family history of CAD (coronary artery disease) Clotting disorder Hyperlipidemia Chronic kidney disease (CKD) Bleeding disorder Thyroid disease Stroke Social History Desire information about substance/drug rehabilitation?: No Counseling given: No Course Vital Signs: Vital signs: Vital Signs Temperature 98.7 F 08/28/22 14:00 Pulse Rate 78 08/28/22 14:00 Respiratory Rate 16 08/28/22 14:00 Blood Pressure 101/58 08/28/22 14:00 Pulse Oximetry 99 08/28/22 14:00 Oxygen Delivery Me thod 08/27/22 21:13 MDM - Psych Medical Decision Making Patient care handoff received from Wilmer Mcgee continuation of ED evaluation. I personally saw and evaluated patient and reperformed oropeza portions of E/M. Chart reviewed patient seen and examined. Interestingly she initially told nursing staff and Wilmer Mcgee that she was homicidal and suicidal. When I talked to her she said she is just angry and upset voice to be admitted because he is having a difficult time managing but feels like she is going to explode she specifically denied homicidal and suicidal ideation. I think she definitely would benefit from psychiatric inpatient having her medicines reestablished to control her moods before she has a critical event. Discussed with psychiatry they concur. Wilmer Mcgee did fill out an affidavit regarding her suicidal and homicidal ideation expressions. Medical Records I reviewed the patient's medical records. Lab Data I reviewed the patient's lab results. 08/27/22 14:30 08/27/22 14:30 Laboratory Results WBC 10.5 10^3/uL (4.0-10.0) H 08/27/22 14:30 RBC 4.54 10^6/uL (4.1-5.3) 08/27/22 14:30 Hgb 13.7 g/dL (11.5-15.3) 08/27/22 14: Hct 41.2 % (37.0-47.0) 08/27/22 14: MCV 90.7 fl (81-99) 08/27/22 14: MCH 30.2 pg (28.0-34.0) 08/27/22 14: MCHC 33.3 g/dL (30.0-36.0) 08/27/22 14: RDW 12.4 % (12.1-15.1) 08/27/22 14: Plt Count 233 10^3/cmm (130-400) 08/27/22 14: MPV 12.6 fL (7.4-10.4) H 08/27/22 14: Neut % (Auto) 67.8 % 08/27/22 14: Lymph % (Auto) 24.5 % 08/27/22 14: [place] % (Auto) 6.3 % 08/27/22 14: Eos % (Auto) 0.5 % 08/27/22 14: Baso % (Auto) 0.7 % 08/27/22: Neut # (Auto) 7.16 10^3/uL (1.8-7.7) 08/27/22 14: Lymph # (Auto) 2.6 10^3/uL (0.8-4.8) 08/27/22: [place] # (Auto) 0.7 10^3/uL (0.2-0.9) 08/27/22 14: Eos # (Auto) 0.1 10^3/uL (0.0-0.8) 08/27/22: Baso # (Auto) 0.1 10^3/uL (0.0-0.1) 08/27/22: Nucleated RBC % (auto) 0 % 08/27/22: Nucleated RBCs # 0.0 /100WBC 08/27/22 14: Sodium 141 mmol/L (136-145) 08/27/22 14: Potassium 3.9 mmol/L (3.5-5.1) 08/27/22 14:30 Chloride 103 mmol/L (98-107) 08/27/22 14:30 Carbon Dioxide 25 mmol/L (22-29) 08/27/22 14:30 Anion Gap 16.9 (5-19) 08/27/22 14:30 BUN 8 mg/dL (6-20) 08/27/22 14:30 Creatinine 0.7 mg/dL (0.5-0.9) 08/27/22 14:30 GFR Calculation 104.6 mL/min (90-130) 08/27/22 14:30 Glucose 82 mg/dL (65-115) 08/27/22 14:30 Calculated Osmolality 289 mOsm/kg (285-295) 08/27/22 14:30 Calcium 9.4 mg/dL (8.5-10.5) 08/27/22 14:30 Total Bilirubin 0.5 mg/dL (0.15-1.2) 08/27/22 14:30 AST 15 U/L (0-32) 08/27/22 14:30 ALT 11 U/L (0-33) 08/27/22 14:30 Alkaline Phosphatase 57 U/L (35-105) 08/27/22 14:30 Total Protein 7.3 g/dL (6.6-8.7) 08/27/22 14:30 Albumin 4.7 g/dL (3.5-5.2) 08/27/22 14:30 Globulin 2.6 g/dL (1.3-4.6) 08/27/22 14:30 HCG, Qual Negative (Negative) 08/27/22 14:30 Urine Color Light yellow (Yellow) 08/27/22 14:35 Urine Appearance Clear (CLEAR) 08/27/22 14:35 Urine pH 7 (5-7) 08/27/22 14:35 Ur Specific [place] 1.010 (1.005-1.030) 08/27/22 14:35 Urine Protein Neg (Negative) 08/27/22 14:35 Urine Glucose (UA) Norm (Normal) 08/27/22 14:35 Urine Ketones Negative (Negative) 08/27/22 14:35 Urine Blood Neg (Negative) 08/27/22 14:35 Urine Nitrate Negative (Negative) 08/27/22 14:35 Urine Bilirubin Neg (Negative) 08/27/22 14:35 Urine Urobilinogen Norm mg/dL (Negative) 08/27/22 14:35 Ur Leukocyte Esterase Negative (Negative) 08/27/22 14:35 Salicylates 0.9 mg/dL (3-10) L 08/27/22 14:30 Urine Opiates Screen Negative ng/mL (Negative) 08/27/22 14:35 Acetaminophen < 5.0 ug/mL (10-30) L 08/27/22 14:30 Ur Barbiturates Screen Negative ng/mL (Negative) 08/27/22 14:35 Ur Phencyclidine Scrn Negative ng/mL (Negative) 08/27/22 14:35 Ur Amphetamines Screen Negative ng/mL (Negative) 08/27/22 14:35 U Benzodiazepines Scrn Negative ng/mL (Negative) 08/27/22 14:35 [place] 1.1 mmol/L (0.6-1.2) 08/27/22 14:30 Urine Cocaine Screen Negative ng/mL (Negative) 08/27/22 14:35 U Marijuana (THC) Screen Positive ng/mL (Negative) H 08/27/22 14:35 Ethyl Alcohol < 10 mg/dL (0-10) 08/27/22 14:30 Discharge Plan Discharge Patient Disposition: Admitted As Inpatient Admit Provider: Irwin Bob Clinical Impression: Suicidal ideation, Bipolar disorder Condition: Stable Sign Out Sign Out Data: Patient Sign Out occurred on 08/27/22 at 17:20. Patient's care was discussed, and care was transferred from to Ok Aquino DO. Coding Level of Care Code ED Structural Iron Erector for Marci Martínez
[2022-08-27 14:44] LABS: Basophils # 0.1 10^3/uL (0.0-0.1); Basophils % 0.7 %; Eosinophils # 0.1 10^3/uL (0.0-0.8); Eosinophils % 0.5 %; Hematocrit 41.2 % (37.0-47.0); Hemoglobin 13.7 g/dL (11.5-15.3); Lymphocytes # 2.6 10^3/uL (0.8-4.8); Lymphocytes % 24.5 %; Mean Corpuscular HGB Conc 33.3 g/dL (30.0-36.0); Mean Corpuscular Hemoglobin 30.2 pg (28.0-34.0); Mean Corpuscular Volume 90.7 fl (81-99); Mean Platelet Volume 12.6 fL (7.4-10.4); Monocytes # 0.7 10^3/uL (0.2-0.9); Monocytes % 6.3 %; Neutrophils # 7.16 10^3/uL (1.8-7.7); Neutrophils % 67.8 %; Nucleated Red Blood Cells % 0 %; Platelet Count 233 10^3/cmm (130-400); Red Blood Count 4.54 10^6/uL (4.1-5.3); Red Cell Distribution Width 12.4 % (12.1-15.1); White Blood Count 10.5 10^3/uL (4.0-10.0)
[2022-08-27 14:53] LABS: Add Urine Microscopic? NO; Charge for UA Resulting for Rev
[2022-08-27 14:57] LABS: Bilirubin Urine Neg (Negative); Blood Urine Neg (Negative); Glucose Urine UA Norm (Normal); Ketones Urine Negative (Negative); Leukocyte Esterase Urine Negative (Negative); Nitrate Urine Negative (Negative); Protein Urine Neg (Negative); Urine Appearance Clear (CLEAR); Urine Color Light yellow (Yellow); Urobilinogen Urine Norm (Negative); pH Urine 7 (5-7)
[2022-08-27 14:58] LABS: HCG, Serum Qual Negative (Negative)
[2022-08-27 15:03] LABS: Alanine Aminotransferase 11 U/L (0-33); Albumin Level 4.7 g/dL (3.5-5.2); Alkaline Phosphatase 57 U/L (35-105); Anion Gap 16.9 (5-19); Aspartate Amino Transferase 15 U/L (0-32); Blood Urea Nitrogen 8 mg/dL (6-20); Calcium 9.4 mg/dL (8.5-10.5); Carbon Dioxide 25 mmol/L (22-29); Chloride 103 mmol/L (98-107); Globulin 2.6 g/dL (1.3-4.6); Glomerular Filtration Rate 104.6 mL/min (90-130); Glucose 82 mg/dL (65-115); Osmolality Calculated 289 mOsm/kg (285-295); Potassium 3.9 mmol/L (3.5-5.1); Salicylate 0.9 mg/dL (3-10); Sodium 141 mmol/L (136-145); Total Bilirubin 0.5 mg/dL (0.15-1.2); Total Protein 7.3 g/dL (6.6-8.7)
[2022-08-27 15:05] LABS: Acetaminophen < 5.0 ug/mL (10-30); Alcohol Level < 10 mg/dL (0-10)
[2022-08-27 15:10] LABS: Amphetamines Screen Urine Negative (Negative); Barbiturates Screen Urine Negative (Negative); Benzodiazepines Screen Urine Negative (Negative); Cocaine Screen Urine Negative (Negative); Opiate Screen Urine Negative (Negative); PCP Screen Urine Negative (Negative); THC Screen Urine Positive (Negative)
[2022-08-27 16:17] VITALS: BP 117/79; PULSE 66; RESP 20; O2SAT 99
[2022-08-27 19:57] VITALS: BP 113/73; PULSE 64; RESP 16; TEMP 36.9; O2SAT 100
[2022-08-27 20:31] LABS: Lithium 1.1 mmol/L (0.6-1.2)
[2022-08-27 22:00] VITALS: BP 113/73; PULSE 64; RESP 16; TEMP 36.9; O2SAT 100
[2022-08-28 06:00] VITALS: BP 104/92; PULSE 74; RESP 16; TEMP 36.9; O2SAT 98
[2022-08-28] MEDS: hyDROXYzine 25 mg Capsule 50 MG PO (08:16)
[2022-08-28] MEDS: nicotine 2 mg Gum BUCCAL ×6 (08:18→19:36)
--- NOTE | 2022-08-28 11:32 | PC.NURSE ---
Addendum entered by Delbert Joseph RN 08/28/22 11:39: PT WITH O SIGNS OR SYMPTOMS OF DISTRESS, WILL CONTINUE TO MONITOR. Original Note: PRN MED PT GIVEN 50MG VISTARIL AT 0816 FOR STATED ANXIETY , WILL CONTINUE TO MONITOR.
[2022-08-28 14:00] VITALS: BP 101/58; PULSE 78; RESP 16; TEMP 37.1; O2SAT 99
--- NOTE | 2022-08-28 15:20 | P.NPUHP_ITS ---
Providers/Chief Complaint Admitting Physician: Irwin Bob MD Primary Care Provider: Perry Guzman Chief Complaint: MHE HPI NPU History of Present Illness Shanelle Aragon is a 22 year old female who presented to the emergency department with complaints of suicidal ideation. She has a previous history of cannabis dependence major depressive disorder and posttraumatic stress disorder and states that she had been placed on lithium 300 mg daily a month ago and states that she stopped taking it a week ago stating that she did not like the way it was making her feel. She endorses having depressed mood and having depressive episodes since adolescence and states that she has also had periods of time with increased irritability decreased need for sleep low energy along with racing thoughts and intense irritability and agitation. She reports that these episodes last approximately 3 to 4 days and is often followed by intense episodes of depression lasting for many more days. She has reported chronic marijuana use for the past 3 to 4 years. She has reported anhedonia and reports being more easily agitated and states that she has been punching de la fuente recently. She reports that she is currently tired of feeling like this and states that she decided to do something about it and come into the hospital for further treatment. She denies any history of psychosis. She denies any history of any recent alcohol use. She endorses a history of sleep continuity disruption and reports a history of mixed mood episodes with periods of depression and irritability both present with associated racing thoughts and agitation. She endorses a history of intense crying spells and frequent mood fluctuations with extended periods of depression followed by periods of intense irritability and occasional euphoric episodes with complaints of racing thoughts as well. Inpatient psychiatric history: She reports 1 previous inpatient psychiatric hospitalization at [facility] in 2019 for 3 days. Outpatient psychiatric history: She reports currently receiving treatment at [facility] under the care of of Sylvie Lovelace with her most recent visit on July 30, 2022. Drug and alcohol history: She endorses a past history of alcohol abuse but states that she has been without alcohol use for several years. She and has endorsed a history of marijuana use for the past 3 years on a daily basis. She denies any other illicit drug use. She also reports the use of vaping to attempt to discontinue her use of nicotine and cigarettes. Current medications: None although she reports previous trials of Abilify lithium and lamotrigine Legal history: None medical history: GERD Allergies: No known drug allergies Surgical history: appendectomy Social history: The patient lives in [facility] and was born in [facility]. She reports that she has never been . She has a 38-yvate-xaz son and reports having depression during her along with depression as well. She had graduated high school and is currently unemployed having last worked in March 2022. She had reported that she had witnessed her brother in 2014 secondary to heart attack. Otherwise she denied any history of sexual physical or emotional trauma. She reports that she has many half siblings and 1 other biological brother. She reports that her parents had been and her mother had remarried to a man that had significant legal problems. She has no history. Family psychiatric history is notable for history of alcoholism in the father. Meds NPU Home Medications Medication Instructions Recorded Confirmed Last Taken Type L.acidophil-L.casei-B.bifid-B.longum-FOS 2 cap PO DAILY 08/27/22 08/27/22 Unknown History 2 billion cell-50 mg capsule (Probiotic Blend) lithium carbonate 300 mg capsule 300 mg PO DAILY@18 08/27/22 08/27/22 1 Week Ago History ~08/20/22 multivitamin with minerals 3 tab PO DAILY 08/27/22 08/27/22 Unknown History (Hair,Skin and Nails tablet) Allergies Allergy/AdvReac Type Severity Reaction Status Date / Time No Known Allergies Allergy Verified 08/27/22 14:20 PFS NPU PFSH: Medical History Cannabis dependence, episodic use Chronic post-traumatic stress disorder Major depressive disorder, recurrent, moderate Psychiatric care Vapes nicotine containing substance Surgical History History of appendectomy Family History Grandmother Breast cancer, Onset Age: 45 Maternal Grandfather Diabetes Paternal Hypertension Maternal Denies family history of CAD (coronary artery disease) Clotting disorder Hyperlipidemia Chronic kidney disease (CKD) Bleeding disorder Thyroid disease Stroke Social History Desire information about substance/drug rehabilitation?: No Counseling given: No Mental Status Exam MSE Comments: She is a casually dressed white female with short length hair that had tips that were lavender. Her eye contact was fair her hygiene was fa ir. There was no evidence of any abnormal involuntary motor movements tics or tremors appreciated. There was no clear evidence of psychomotor agitation or psychomotor retardation. Her mood was described as frustrated. Her affect was somewhat restricted in range and mood-congruent. Her thought process was linear logical and goal-directed. Her thought content showed no evidence of active homicidal ideation although she did endorse suicidal ideation. There was no clear evidence of delusional thinking. She did not appear to be responding to internal stimuli. She was alert and oriented to person place time and situation. Her attention span appeared fair. Her recent and remote memory ap peared grossly intact. Her insight is poor. Her judgment is poor. Her impulse control appeared limited. Vitals/I&O/Wt Last Vital Signs Temp 98.5 F 08/28/22 06:00 Pulse 74 08/28/22 06:00 Resp 16 08/28/22 06:00 BP 104/92 08/28/22 06:00 Pulse Ox 98 08/28/22 06:00 O2 Del Method 08/27/22 21:13 Weight last 48 hrs Weight 70.307 kg Data NPU 08/27/22 14:30 08/27/22 14:30 A&P Assessment and plan (1) Suicidal ideation: (2) Bipolar 2 disorder: (3) Marijuana dependence: Plan Is a 22-year-old white female who appears to have a history of bipolar 2 disorder with recent emergence of hypomania that appears to be exacerbated by her chronic marijuana use. Patient would likely benefit from a trial of a mood stabilizer to target particularly bipolar depression. Psychoeducation was provided regarding bipolar disorder patient was agreeable to treatment. 1.? Trial of Latuda 20mg to target bipolar depression. Risks/benefits discussed with patient who was agreeable.? 2.? Continue every 15 minute checks for safety. 3.? Encourage individual, group and milieu therapy once he has engaged. 4.? Encourage sobriety treatment after discharge to the highest level of care the patient is willing to commit. Involuntary Hold Information 96 Hour Hold: 96 Hour Involuntary Admission: No Attestations NPU Medical Necessity Statement*: Inpatient hospitalization is medically necessary and is clinically appropriate time. We will initiate medications and make changes as indicated.? She will be in the hospital for over 2 midnights with her likely length of stay 3-5 days. Coding Level of Care Code Acute Code for [facility] Fwd Diagnoses Suicidal ideation R45.851 Bipolar 2 disorder F31.81 Marijuana dependence F12.20
[2022-08-28] MEDS: lurasidone 20 mg Tablet PO (16:08)
[2022-08-28 21:57] VITALS: BP 100/58; PULSE 94; RESP 16; TEMP 36.7; O2SAT 100
[2022-08-29 06:00] VITALS: BP 101/65; PULSE 69; RESP 16; TEMP 36.9; O2SAT 98
[2022-08-29] MEDS: nicotine 2 mg Gum BUCCAL ×5 (07:37→17:20)
--- NOTE | 2022-08-29 09:39 | PC.NURSE ---
Educated pt on use of nicotine gum, including chewing it briefly, pocketing it in her cheek, then chewing it again. Pt aware she shouldn't swallow it or add new gum to old gum. Pt appreciative of information provided.
--- NOTE | 2022-08-29 13:54 | W.PM.NPUPNS ---
Subjective NPU Subjective: 22-year-old white female admitted with depressed mood and suicidal ideation with a history of bipolar 2 disorder and cannabis abuse. She reported that she had no side effects from her medication. She had continued to endorse depressed mood. She had reported that she was motivated to stop using marijuana as she had stated that it led to increased mood instability, hypomanic symptoms increased agitation and increased sleep disturbance. Staff notes the patient had been compliant on the milieu. She had reported still feeling stressed and overwhelmed and stated that she was motivated to receive treatment for her marijuana use as well. She had reported a history of psychological dependence to the medication but no physical withdrawal symptoms reported., Mental Status Exam MSE Comments: She is a casually dressed white female with short length hair that had tips that were lavender. Her eye contact was fair .Her hygiene was fair. There was no evidence of any abnormal involuntary motor movements tics or tremors appreciated. There was no clear evidence of psychomotor agitation or psychomotor retardation. Her mood was described as a little better. Her affect remained flat. Her thought process was linear, logical and goal-directed. Her thought content showed no evidence of active homicidal ideation although she did endorse suicidal ideation though she reported it was fleeting. There was no clear evidence of delusional thinking. She did not appear to be responding to internal stimuli. She was alert and oriented to person, place ,time and situation. Her attention span appeared fair. Her recent and remote memory appeared grossly intact. Her insight is poor. Her judgment is poor. Her impulse control appeared limited. Vitals/I&O/Wt Last Vital Signs Temp 98.4 F 08/29/22 06:00 Pulse 69 08/29/22 06:00 Resp 16 08/29/22 06:00 BP 101/65 08/29/22 06:00 Pulse Ox 98 08/29/22 06:00 O2 Del Method 08/29/22 06:00 Weight last 48 hrs Weight 70.307 kg Data NPU 08/27/22 14:30 08/27/22 14:30 A&P Assessment and plan (1) Suicidal ideation: (2) Bipolar 2 disorder: (3) Marijuana dependence: Plan Is a 22-year-old white female who appears to have a history of bipolar 2 disorder with recent emergence of hypomania that appears to be exacerbated by her chronic marijuana use. Patient would likely benefit from a trial of a mood stabilizer to target particularly bipolar depression. Psychoeducation was provided regarding bipolar disorder patient was agreeable to treatment. 1.? Continue Latuda 20mg to target bipolar depression with increase likely to 40mg tommorow. 2.? Continue every 15 minute checks for safety. 3.? Encourage individual, group and milieu therapy once he has engaged. 4.? Encourage sobriety treatment after discharge to the highest level of care the patient is willing to commit. Involuntary Hold Information 96 Hour Hold: 96 Hour Involuntary Admission: No Attestations NPU Medical Necessity Statement*: Inpatient hospitalization is medically necessary and is clinically appropriate time. We will initiate medications and make changes as indicated.? She will be in the hospital for over 2 midnights with her likely length of stay 3-5 days. Coding Level of Care Code Acute Code for g Fwd Diagnoses Suicidal ideation R45.851 Bipolar 2 disorder F31.81 Marijuana dependence F12.20
[2022-08-29 14:00] VITALS: BP 117/73; PULSE 92; RESP 16; TEMP 36.9; O2SAT 98
[2022-08-29] MEDS: lurasidone 20 mg Tablet PO (16:52)
[2022-08-29 22:00] VITALS: RESP 16
[2022-08-30 06:00] VITALS: BP 101/53; PULSE 64; RESP 16; TEMP 36.4; O2SAT 96
[2022-08-30] MEDS: nicotine 2 mg Gum BUCCAL ×4 (07:50→15:01)
--- NOTE | 2022-08-30 13:25 | W.PM.NPUDCS ---
Diagnoses at Discharge Discharge Diagnosis (1) Suicidal ideation: Status: Resolved (2) Bipolar 2 disorder: Status: Chronic (3) Marijuana dependence: Status: Chronic Reason for Visit Reason for Visit: MHE Brief History: History of Present Illness Shanelle Aragon is a 22 year old female who presented to the emergency department with complaints of suicidal ideation.? She has a previous history of cannabis dependence major depressive disorder and posttraumatic stress disorder and states that she had been placed on lithium 300 mg daily a month ago and states that she stopped taking it a week ago stating that she did not like the way it was making her feel.? She endorses having depressed mood and having depressive episodes since adolescence and states that she has also had periods of time with increased irritability decreased need for sleep low energy along with racing thoughts and intense irritability and agitation.? She reports that these episodes last approximately 3 to 4 days and is often followed by intense episodes of depression lasting for many more days.? She has reported chronic marijuana use for the past 3 to 4 years.? She has reported anhedonia and reports being more easily agitated and states that she has been punching de la fuente recently.? She reports that she is currently tired of feeling like this and states that she decided to do something about it and come into the hospital for further treatment.? She denies any history of psychosis.? She denies any history of any recent alcohol use.? She endorses a history of sleep continuity disruption and reports a history of mixed mood episodes with periods of depression and irritability both present with associated racing thoughts and agitation.? She endorses a history of intense crying spells and frequent mood fluctuations with extended periods of depression followed by periods of intense irritability and occasional euphoric episodes with complaints of racing thoughts as well. Inpatient psychiatric history: She reports 1 previous inpatient psychiatric hospitalization at [facility] in 2019 for 3 days. Outpatient psychiatric history: She reports currently receiving treatment at [facility] under the care of of Sylvie Lovelace with her most recent visit on July 30, 2022. Drug and alcohol history: She endorses a past history of alcohol abuse but states that she has been without alcohol use for several years.? She and has endorsed a history of marijuana use for the past 3 years on a daily basis.? She denies any other illicit drug use.? She also reports the use of vaping to attempt to discontinue her use of nicotine and cigarettes. Current medications: None although she reports previous trials of Abilify lithium and lamotrigine Legal history: None medical history: GERD Allergies: No known drug allergies Surgical history: appendectomy Social history: The patient lives in [facility] and was born in [facility].? She reports that she has never been .? She has a 39-sghyh-rye son and reports having depression during her along with depression as well.? She had graduated high school and is currently unemployed having last worked in March 2022.? She had reported that she had witnessed her brother in 2014 secondary to heart attack.? Otherwise she denied any history of sexual physical or emotional trauma.? She reports that she has many half siblings and 1 other biological brother.? She reports that her parents had been and her mother had remarried to a man that had significant legal problems.? She has no history.? Family psychiatric history is notable for history of alcoholism in the father. Hospital Course Hospital Course During the hospitalization, patient had routine laboratory studies which were within normal limits except for few outliers.? Additionally there was a general medical evaluation which was also within normal limits and revealed no new acute processes other than the cut/lacerations related to the issues surrounding his admission.. At the time of discharge, he denied psychosis or lethality.? Mood and anxiety were well managed.? Patient endorsed a plan to avoid all drugs of abuse and follow-up with the aftercare recommendations of the treatment team.? Patient was evaluated and deemed to be absent credible lethality, and had achieved the maximum benefit from an inpatient hospitalization, so was discharged. Involuntary Hold Information 96 Hour Hold: 96 Hour Involuntary Admission: No Mental Status Exam MSE Comments: She is a casually dressed white female with short length hair that had tips that were lavender. Her eye contact was fair .Her hygiene was fair. There was no evidence of any abnormal involuntary motor movements tics or tremors appreciated. There was no clear evidence of psychomotor agitation or psychomotor retardation. Her mood was described as better. Her affect was brighter. Her thought process was linear, logical and goal-directed. Her thought content showed no evidence of active homicidal ideation nor any suicidal ideation. There was no clear evidence of delusional thinking. She did not appear to be responding to internal stimuli. She was alert and oriented to person, place ,time and situation. Her attention span appeared fair. Her recent and remote memory appeared grossly intact. Her insight is improved. Her judgment is fair. Her impulse control appeared better. Discharge Data Studies Completed and Pending: Laboratory Results WBC 10.5 10^3/uL (4.0 -10.0) H 08/27/22 14:30 RBC 4.54 10^6/uL (4.1 -5.3) 08/27/22 14:30 Hgb 13.7 g/dL (11.5-1 5.3) 08/27/22 14:30 Hct 41.2 % (37.0-47.0 ) 08/27/22 14:30 MCV 90.7 fl (81-99) 08/27/22 14: MCH 30.2 pg (28.0-34. 0) 08/27/22 14: MCHC 33.3 g/dL (30.0-3 6.0) 08/27/22 14: RDW 12.4 % (12.1-15.1 ) 08/27/22 14: Plt Count 233 10^3/cmm (130 -400) 08/27/22 14: MPV 12.6 fL (7.4-10.4 ) H 08/27/22 14:30 Neut % (Auto) 67.8 % 08/27/22 14: Lymph % (Auto) 24.5 % 08/27/22 14:30 [place] % (Auto) 6.3 % 08/27/22 14: Eos % (Auto) 0.5 % 08/27/22: Baso % (Auto) 0.7 % 08/27/22 14: Neut # (Auto) 7.16 10^3/uL (1.8 -7.7) 08/27/22 14:30 Lymph # (Auto) 2.6 10^3/uL (0.8- 4.8) 08/27/22:30 [place] # (Auto) 0.7 10^3/uL (0.2- 0.9) 08/27/22 14:30 Eos # (Auto) 0.1 10^3/uL (0.0- 0.8) 08/27/22 14:30 Baso # (Auto) 0.1 10^3/uL (0.0- 0.1) 08/27/22 14:30 Nucleated RBC % (a uto) 0 % 08/27/22 14: Nucleated RBCs # 0.0 /100WBC 08/27/22 14:30 Sodium 141 mmol/L (136-1 45) 08/27/22 14:30 Potassium 3.9 mmol/L (3.5-5 .1) 08/27/22 14:30 Chloride 103 mmol/L (98-10 7) 08/27/22 14:30 Carbon Dioxide 25 mmol/L (22-29) 08/27/22 14:30 Anion Gap 16.9 (5-19) 08/27/22 14:30 BUN 8 mg/dL (6-20) 08/27/22 14:30 Creatinine 0.7 mg/dL (0.5-0. 9) 08/27/22 14:30 GFR Calculation 104.6 mL/min (90- 130) 08/27/22 14:30 Glucose 82 mg/dL (65-115) 08/27/22 14:30 Calculated Osmolal ity 289 mOsm/kg (285- 295) 08/27/22 14:30 Calcium 9.4 mg/dL (8.5-10 .5) 08/27/22 14:30 Total Bilirubin 0.5 mg/dL (0.15-1 .2) 08/27/22 14:30 AST 15 U/L (0-32) 08/27/22 14:30 ALT 11 U/L (0-33) 08/27/22 14:30 Alkaline Phosphata se 57 U/L (35-105) 08/27/22 14:30 Total Protein 7.3 g/dL (6.6-8.7 ) 08/27/22 14:30 Albumin 4.7 g/dL (3.5-5.2 ) 08/27/22 14: Globulin 2.6 g/dL (1.3-4.6 ) 08/27/22 14:30 HCG, Qual Negative (Negati ve) 08/27/22 14:30 Urine Color Light yellow (Ye llow) 08/27/22 14:35 Urine Appearance Clear (CLEAR) 08/27/22 14:35 Urine pH 7 (5-7) 08/27/22 14:35 Ur Specific Gravit y 1.010 (1.005-1.0 30) 08/27/22 14:35 Urine Protein Neg (Negative) 08/27/22 14:35 Urine Glucose (UA) Norm (Normal) 08/27/22 14:35 Urine Ketones Negative (Negati ve) 08/27/22 14:35 Urine Blood Neg (Negative) 08/27/22 14:35 Urine Nitrate Negative (Negati ve) 08/27/22 14:35 Urine Bilirubin Neg (Negative) 08/27/22 14:35 Urine Urobilinogen Norm mg/dL (Negat serafin) 08/27/22 14:35 Ur Leukocyte Abigail ase Negative (Negati ve) 08/27/22 14:35 Salicylates 0.9 mg/dL (3-10) L 08/27/22 14:30 Urine Opiates Scre en Negative ng/mL (N egative) 08/27/22 14:35 Acetaminophen < 5.0 ug/mL (10-3 0) L 08/27/22 14:30 Ur Barbiturates Sc reen Negative ng/mL (N egative) 08/27/22 14:35 Ur Phencyclidine S crn Negative ng/mL (N egative) 08/27/22 14:35 Ur Amphetamines Sc reen Negative ng/mL (N egative) 08/27/22 14:35 U Benzodiazepines Scrn Negative ng/mL (N egative) 08/27/22 14:35 Burchard 1.1 mmol/L (0.6-1 .2) 08/27/22 14:30 Urine Cocaine Scre en Negative ng/mL (N egative) 08/27/22 14:35 U Marijuana (THC) Screen Positive ng/mL (N egative) H 08/27/22 14:35 Ethyl Alcohol < 10 mg/dL (0-10) 08/27/22 14:30 Vitals: Last Vital Signs Temp 97.6 F 08/30/22 06:00 Pulse 64 08/30/22 06:00 Resp 16 08/30/22 06:00 BP 101/53 08/30/22 06:00 Pulse Ox 96 08/30/22 06:00 O2 Del Method 08/30/22 06:00 Discharge Plan Discharge Patient Disposition: Home Condition: Stable Prescriptions: Continued Hair,Skin and Nails Tablet 3 tab PO DAILY Probiotic Blend 2 billion cell-50 mg Capsule 2 cap PO DAILY Discontinued lithium carbonate 300 mg capsule 300 mg PO DAILY@18 No Action Latuda 60 mg tablet 60 mg PO .evening Qty: 30 1RF Rx Instructions: Take one tablet every evening with dinner, must administer with food (at least 350 calories) Discharge Orders: Discharge Order (Routine); Ordered 08/30/22 Ordered By: Derek Romo Referrals: Stella Nguyen LCSW [Therapist] - 09/10/22 2:15 am (Follow up.) Starla Bolton PMISSACP [Staff Physician] - 09/03/22 1:15 pm (Follow up) Perry Guzman [Primary Care Provider] - 09/02/22 2:40 pm (Will be seen at [address] [place] [address], [id number] on 09/02/22 @ 2:40 pm with Emma Fallon. ) Discharge Diet: Advance as tolerated Discharge Activity: Resume usual activity Patient Instructions: Lurasidone (By mouth), Bipolar Disorder (DC), Opioid Safety Discharge Attestations NPU Time Spent in Discharge Care*: less than 30 min Specific Discharge Activities: Specific discharge activities: educating patient and educating and/or supporting family/caregiver Coding Level of Care Code Acute Chg FW DC note Diagnoses Suicidal ideation R45.851 Bipolar 2 disorder F31.81 Marijuana dependence F12.20
[2022-08-30 13:29] VITALS: BP 101/53; PULSE 64; RESP 16; TEMP 36.4; O2SAT 96
[2022-08-30 14:00] VITALS: BP 143/88; PULSE 70; RESP 16; TEMP 36.6; O2SAT 99
== END 2022-08-30 16:09 | disposition home or self-care (01) | DRG 885 ==
LOC: ER 17:20 → NP 18:24
PROVIDERS: Physician Assistant; Admitting Provider Psychiatry & Neurology Psychiatry; Emergency Provider Family Medicine; PCP Family Medicine; Visit Provider Psychiatry & Neurology Psychiatry
DX: F31.0 Bipolar disorder, current episode hypomanic (principal); F12.20 Cannabis dependence, uncomplicated; F43.12 Post-traumatic stress disorder, chronic; F10.11 Alcohol abuse, in remission; Z81.1 Family history of alcohol abuse and dependence; F17.290 Nicotine dependence, other tobacco product, uncomplicated
CPT/HCPCS: 36415; 80053; 80178; 80306; 80307; 81003; 84703; 85025; 97150; 97165; 99238; 99285

== ENCOUNTER → 2022-10-09 11:58 | Outpatient (BNVA) | payer MEDICAID, SELFPAY | PROVIDERS: PCP Family Medicine; Visit Provider Nurse Practitioner Family | DX: A53.9 Syphilis, unspecified (principal); B09 Unspecified viral infection characterized by skin and mucous membrane lesions | CPT/HCPCS: 86592 ==

== ENCOUNTER → 2022-10-10 07:59 | Outpatient (BNVA) | payer MEDICAID, SELFPAY | PROVIDERS: PCP Family Medicine; Visit Provider Podiatrist Foot & Ankle Surgery | DX: A53.9 Syphilis, unspecified (principal) | CPT/HCPCS: 86592 ==

== ENCOUNTER → 2022-12-11 13:50 | Outpatient (BNVA) | payer MEDICAID, SELFPAY | PROVIDERS: PCP Nurse Practitioner Family; Visit Provider Nurse Practitioner Psychiatric/Mental Health | DX: Z79.899 Other long term (current) drug therapy (principal) | CPT/HCPCS: 80053; 80061; 83036 ==

== ENCOUNTER → 2023-02-26 15:21 | Outpatient (BNVA) | payer MEDICAID, SELFPAY | PROVIDERS: PCP Nurse Practitioner Family; Visit Provider Emergency Medicine | DX: R51.9 Headache, unspecified (principal); Z20.822 Contact with and (suspected) exposure to COVID-19 | CPT/HCPCS: 87426 ==

== ENCOUNTER → 2023-03-06 09:31 | Outpatient (BNVA) | payer MEDICAID, SELFPAY | PROVIDERS: PCP Nurse Practitioner Family; Visit Provider Nurse Practitioner Family | DX: R53.83 Other fatigue (principal); M25.50 Pain in unspecified joint; R21 Rash and other nonspecific skin eruption | CPT/HCPCS: 80053; 85025; 86038; 86431 ==

== ENCOUNTER → 2023-08-19 11:09 | Outpatient (BNVA) | payer MEDICAID, SELFPAY | PROVIDERS: PCP Nurse Practitioner Family; Visit Provider Nurse Practitioner Family | DX: Z01.419 Encounter for gynecological examination (general) (routine) without abnormal findings (principal) | CPT/HCPCS: 87624 ==

== ENCOUNTER → 2023-09-08 10:01 | Outpatient (BNVA) | payer MEDICAID, SELFPAY | PROVIDERS: PCP Nurse Practitioner Family; Visit Provider Nurse Practitioner Psychiatric/Mental Health | DX: F31.81 Bipolar II disorder (principal); Z79.899 Other long term (current) drug therapy | CPT/HCPCS: 80053; 80061; 80178; 83036 ==

== ENCOUNTER → 2023-11-28 13:45 | Outpatient (BNVA) | payer MEDICAID, SELFPAY | PROVIDERS: PCP Nurse Practitioner Family; Visit Provider Nurse Practitioner Psychiatric/Mental Health | DX: Z79.899 Other long term (current) drug therapy (principal) | CPT/HCPCS: 80178 ==

== ENCOUNTER → 2023-12-25 16:31 | Outpatient (BNVA) | payer MEDICAID, SELFPAY | PROVIDERS: PCP Nurse Practitioner Family; Visit Provider Nurse Practitioner Psychiatric/Mental Health | DX: Z79.899 Other long term (current) drug therapy (principal) | CPT/HCPCS: 84146 ==

== ENCOUNTER → 2024-02-20 12:16 | Outpatient (BNVA) | payer MEDICAID, SELFPAY | PROVIDERS: PCP Nurse Practitioner Family; Visit Provider Nurse Practitioner Psychiatric/Mental Health | DX: Z79.899 Other long term (current) drug therapy (principal) | CPT/HCPCS: 84146 ==

== ENCOUNTER → 2024-03-15 13:06 | Outpatient (BNVA) | payer MEDICAID, SELFPAY | PROVIDERS: PCP Nurse Practitioner Family; Visit Provider Nurse Practitioner Family | DX: N89.8 Other specified noninflammatory disorders of vagina (principal); R79.89 Other specified abnormal findings of blood chemistry | CPT/HCPCS: 81000; 87070; 87205; 87491; 87591 ==

== ENCOUNTER → 2024-03-16 09:13 | Outpatient (BNVA) | payer MEDICAID, SELFPAY | PROVIDERS: PCP Nurse Practitioner Family; Visit Provider Nurse Practitioner Family | DX: R79.89 Other specified abnormal findings of blood chemistry (principal) | CPT/HCPCS: 84146 ==

== ENCOUNTER → 2024-03-19 13:13 | Outpatient (BNVA) | payer MEDICAID, SELFPAY | PROVIDERS: PCP Nurse Practitioner Family; Visit Provider Nurse Practitioner Psychiatric/Mental Health | DX: Z79.899 Other long term (current) drug therapy (principal) | CPT/HCPCS: 80307 ==

== ENCOUNTER → 2024-03-29 11:02 | Outpatient (BNVA) | payer MEDICAID, SELFPAY | PROVIDERS: PCP Nurse Practitioner Family; Visit Provider Nurse Practitioner Family | DX: I10 Essential (primary) hypertension (principal); R79.89 Other specified abnormal findings of blood chemistry; R53.83 Other fatigue | CPT/HCPCS: 80053; 82670; 83001; 83002; 84403; 84439; 84443 ==

== ENCOUNTER 2024-04-23 12:47 | Outpatient (CLI) | payer MEDICAID, SELFPAY ==
--- NOTE | 2024-04-23 13:00 | MR_ITS ---
WS: [id number] MRI BRAIN WITHOUT AND WITH CONTRAST, ATTENTION DIRECTED TO THE PITUITARY GLAND HISTORY: R79.89 - Other specified abnormal findings of blood chemistry, high testosterone. COMPARISON: None available. TECHNIQUE: Diffusion-weighted imaging, axial T2 sequence, and postcontrast images in 3 planes are per formed. High-resolution coronal and sagittal imaging performed through the pituitary region with and without intravenous gadolinium. MultiHance 20 mL. Noncontrast imaging through the pituitary gland demonstrates no abnormality. Normal height of the pit uitary gland. No signal abnormality or hemorrhage. On the postcontrast imaging there is no area of ab normal enhancement. No mass identified. Normal position of the infundibulum and optic chiasm. No acute infarct or prior infarct. No volume loss or hippocampal atrophy. Normal hoang and white matte r. Normal ventricles. No hemorrhage. No inferior displacement the cerebellar tonsils. Clivus and pituitary gland are negative. Moderate-sized mucous retention cyst in the RIGHT maxillary sinus. No air-fluid levels in the sinuses . Normal mastoid air cells. MR/MR pituitary wo/w con* [id number] IMPRESSION: 1. Normal pituitary gland. No macroadenoma or microadenoma. 2. Normal MRI brain with contrast.
[2024-04-23] MEDS: gadobenate dimeglumine 20 mL vial IV (14:02)
== END 2024-04-23 12:48 | disposition home or self-care (01) ==
LOC: RAD 12:49
PROVIDERS: PCP Nurse Practitioner Family; Visit Provider Nurse Practitioner Family
DX: R79.89 Other specified abnormal findings of blood chemistry (principal); J34.1 Cyst and mucocele of nose and nasal sinus
CPT/HCPCS: 70553

== ENCOUNTER 2024-06-18 12:58 | Outpatient (CLI) | payer MEDICAID, SELFPAY ==
[2024-06-18 13:34] LABS: Chol HDL Ratio 2.11 mg/dL (0.0-4.40); Cholesterol 120 mg/dL (0-200); HDL Cholesterol 57 mg/dL (60-100); LDL Cholesterol Calculated 52 mg/dL (50-129); LDL HDL Ratio 0.91 RATIO (0.00-3.22); Triglycerides 55 mg/dL (0-150)
[2024-06-18 13:37] LABS: Estmated Average Glucose 88; Hemoglobin A1C 4.7 % (4.0-6.0)
[2024-06-18 13:44] LABS: Lithium 0.2 mmol/L (0.6-1.2)
[2024-06-18 14:14] LABS: Prolactin 40.92 ng/mL (4.8-23.3)
== END 2024-06-18 12:59 | disposition home or self-care (01) ==
LOC: LAB 13:01
PROVIDERS: PCP Nurse Practitioner Family; Visit Provider Nurse Practitioner Psychiatric/Mental Health
DX: Z79.899 Other long term (current) drug therapy (principal)
CPT/HCPCS: 36415; 80061; 80178; 83036; 84146